=== PATIENT | female | born 1980 | race Caucasian/White ===

== ENCOUNTER 2016-10-20 08:50 | Emergency (ER) | payer OTHER ==
[~2016-10-20] VITALS: Ht 165.1 cm; Wt 61.4 kg
[~2016-10-20 08:50] MED LIST: LISI-661 PO
[2016-10-20] MEDS ORDERED: OMEP20TA2 PO (09:01)
[2016-10-20] MEDS ORDERED: LORazepam 2 MG/ML VIAL IVP ONE ×2 (09:15→10:15)
[2016-10-20] MEDS ORDERED: ONDANSETRON HCL 4 MG/2 ML VIAL IVP ONE (09:15)
[2016-10-20] MEDS ORDERED: FAMOTIDINE 10 MG/ML 2 ML VIAL IVP ONE (09:15)
[2016-10-20] MEDS ORDERED: SODIUM CHLORIDE 0.9% 1,000 ML IV ONE (09:15)
[2016-10-20] MEDS ORDERED: PANTOPRAZOLE SODIUM 40 MG/VIAL IVP ONE (09:15)
[2016-10-20 09:36] LABS: BASOPHILS # (AUTO) 0.03 K/uL (0.00-0.20); BASOPHILS % (AUTO) 0.4 % (0.0-2.0); EOSINOPHILS # (AUTO) 0.08 K/uL (0.00-0.70); HEMATOCRIT 40.9 % (36-46); HEMOGLOBIN 13.9 g/dL (12.0-16.0); LYMPHOCYTES # (AUTO) 1.9 K/uL (1.0-4.8); LYMPHOCYTES % (AUTO) 29.5 % (22.0-44.0); MEAN CORPUSCULAR HEMOGLOBIN 31.3 pg (26.0-34.0); MEAN CORPUSCULAR HGB CONC 33.9 G/dL (31.0-37.0); MEAN CORPUSCULAR VOLUME 92 fL (80-100); MONOCYTES # (AUTO) 0.3 K/uL (0.1-1.0); MONOCYTES % (AUTO) 4.9 % (2.0-9.0); NEUTROPHILS # (AUTO) 4.1 K/uL (1.8-7.7); PLATELET COUNT (AUTO) 204 K/uL (150-450); RED BLOOD CELL COUNT(AUTO) 4.43 MIL/uL (4.00-5.20); RED CELL DISTRIBUTION WIDTH 12.9 % (11.5-14.5); WHITE BLOOD COUNT (AUTO) 6.4 K/uL (4.5-11.0)
[2016-10-20 09:38] LABS: ANION GAP 12 mmol/L (8-16); CALCIUM, TOTAL 9.3 mg/dL (8.8-10.5); CARBON DIOXIDE 26 mmol/L (22-29); CHLORIDE 104 mmol/L (98-107); CREATININE 0.77 mg/dL (0.60-1.30); GLOMERULAR FILTR. RATE CALC > 60 mL/min (>60); POTASSIUM 3.8 mmol/L (3.5-5.1); SODIUM SERUM 142 mmol/L (136-145); UREA NITROGEN, BLOOD 9 mg/dL (7-18)
[2016-10-20 09:44] LABS: ALANINE AMINOTRANSFERASE 21 U/L (12-78); ALBUMIN 4.3 g/dL (3.4-5.0); ASPARTATE AMINOTRANSFERASE 13 U/L (15-37); BILIRUBIN,TOTAL 0.4 mg/dL (0.1-1.0); TOTAL PROTEIN, SERUM 7.5 g/dL (6.4-8.2)
[2016-10-20 10:05] LABS: ADD UA MICROSCOPIC YES; APPEARANCE,URINE CLEAR (CLEAR); GLUCOSE, URINE (UA) NEGATIVE (NEGATIVE); KETONES,URINE NEGATIVE (NEGATIVE); LEUKOCYTE ESTERASE ,URINE NEGATIVE (NEGATIVE); OCCULT BLOOD,URINE TRACE (NEGATIVE); PROTEIN,URINE NEGATIVE (NEGATIVE)
[2016-10-20 10:07] LABS: RBC,URINE 0-2 /HPF (0-2); SQUAMOUS EPITHELIAL CELL,UR Few /LPF (None Seen); WBC,URINE 0-2 /HPF (0-5)
[2016-10-20] MEDS ORDERED: DONNATAL/LIDOCAINE/MAALOX 55 ML BOTTLE PO ONE (10:15)
[2016-10-20 11:28] VITALS: BP 124/76
== END 2016-10-20 12:25 | disposition home or self-care (01) ==
LOC: EMS 08:52
DX: K21.9 Gastro-esophageal reflux disease without esophagitis (principal); F41.9 Anxiety disorder, unspecified; I10 Essential (primary) hypertension; F17.210 Nicotine dependence, cigarettes, uncomplicated; Z88.1 Allergy status to other antibiotic agents; Z88.0 Allergy status to penicillin
CPT/HCPCS: 36415; 74176; 80053; 81001; 83690; 84484; 85025; 93005; 96361; 96374; 96375; 96376; 99285; C9113; J2060; J2405; J3490; J7030

== ENCOUNTER 2018-12-28 10:20 | Emergency (ER) | payer OTHER ==
[~2018-12-28] VITALS: Ht 165.1 cm; Wt 75.0 kg
[~2018-12-28 10:20] MED LIST changes: +OMEP20TA2 PO
[2018-12-28] MEDS ORDERED: SODIUM CHLORIDE 0.9% 1,000 ML IV ONE (11:30)
[2018-12-28 11:46] LABS: BASOPHILS % (AUTO) 0.3 % (0.0-2.0); EOSINOPHILS % (AUTO) 1.1 % (1.0-6.0); HEMATOCRIT 40.9 % (36-46); HEMOGLOBIN 13.6 g/dL (12.0-16.0); LYMPHOCYTES # (AUTO) 1.6 K/uL (1.0-4.8); MEAN CORPUSCULAR HEMOGLOBIN 31.4 pg (26.0-34.0); MEAN CORPUSCULAR HGB CONC 33.3 G/dL (31.0-37.0); MEAN CORPUSCULAR VOLUME 95 fL (80-100); MONOCYTES # (AUTO) 0.3 K/uL (0.1-1.0); MONOCYTES % (AUTO) 4.8 % (2.0-9.0); NEUTROPHILS # (AUTO) 3.5 K/uL (1.8-7.7); NEUTROPHILS % (AUTO) 64.8 % (40.0-70.0); PLATELET COUNT (AUTO) 196 K/uL (150-450); RED BLOOD CELL COUNT(AUTO) 4.33 MIL/uL (4.00-5.20); RED CELL DISTRIBUTION WIDTH 13.4 % (11.5-14.5)
[2018-12-28 12:25] LABS: ANION GAP 7 mmol/L (8-16); CALCIUM, TOTAL 9.3 mg/dL (8.8-10.5); CARBON DIOXIDE 26 mmol/L (22-29); CHLORIDE 105 mmol/L (98-107); CREATININE 0.71 mg/dL (0.60-1.30); GLOMERULAR FILTR. RATE CALC > 60 mL/min (>60); GLUCOSE,RANDOM 89 mg/dL (70-110); POTASSIUM 3.9 mmol/L (3.5-5.1); SODIUM SERUM 138 mmol/L (136-145); UREA NITROGEN, BLOOD 11 mg/dL (7-18)
[2018-12-28 12:30] VITALS: BP 122/73
[2018-12-28 12:30] LABS: ALANINE AMINOTRANSFERASE 24 U/L (12-78); ALBUMIN 3.8 g/dL (3.4-5.0); ALKALINE PHOSPHATASE 50 U/L (46-116); ASPARTATE AMINOTRANSFERASE 17 U/L (15-37); BILIRUBIN,TOTAL 0.2 mg/dL (0.1-1.0); TOTAL PROTEIN, SERUM 7.1 g/dL (6.4-8.2)
== END 2018-12-28 13:01 | disposition home or self-care (01) ==
LOC: EMS 10:21
DX: R07.9 Chest pain, unspecified (principal); R00.2 Palpitations; I10 Essential (primary) hypertension; F41.9 Anxiety disorder, unspecified; F17.210 Nicotine dependence, cigarettes, uncomplicated; Z88.0 Allergy status to penicillin; Z79.899 Other long term (current) drug therapy
CPT/HCPCS: 36415; 80053; 84484; 85025; 93005; 96360; 99285; J7030

== ENCOUNTER 2019-02-22 09:35 | Emergency (ER) | payer OTHER ==
[~2019-02-22] VITALS: Ht 165.1 cm; Wt 81.8 kg
[2019-02-22] MEDS ORDERED: CHOL50004 PO (09:42)
[2019-02-22] MEDS ORDERED: OMEG-135 PO (09:42)
[2019-02-22] MEDS ORDERED: MULT-248 PO (09:42)
[2019-02-22 10:07] LABS: BASOPHILS % (AUTO) 0.3 % (0.0-2.0); EOSINOPHILS % (AUTO) 0.8 % (1.0-6.0); HEMATOCRIT 41.5 % (36-46); LYMPHOCYTES # (AUTO) 1.5 K/uL (1.0-4.8); LYMPHOCYTES % (AUTO) 23.6 % (22.0-44.0); MEAN CORPUSCULAR HEMOGLOBIN 31.8 pg (26.0-34.0); MEAN CORPUSCULAR HGB CONC 33.8 G/dL (31.0-37.0); MEAN CORPUSCULAR VOLUME 94 fL (80-100); MONOCYTES # (AUTO) 0.3 K/uL (0.1-1.0); MONOCYTES % (AUTO) 4.1 % (2.0-9.0); NEUTROPHILS # (AUTO) 4.7 K/uL (1.8-7.7); NEUTROPHILS % (AUTO) 71.2 % (40.0-70.0); PLATELET COUNT (AUTO) 209 K/uL (150-450); RED BLOOD CELL COUNT(AUTO) 4.41 MIL/uL (4.00-5.20); RED CELL DISTRIBUTION WIDTH 13.1 % (11.5-14.5)
[2019-02-22 10:17] LABS: ANION GAP 9 mmol/L (8-16); CALCIUM, TOTAL 9.1 mg/dL (8.8-10.5); CARBON DIOXIDE 26 mmol/L (22-29); CHLORIDE 103 mmol/L (98-107); CREATININE 0.91 mg/dL (0.60-1.30); GLOMERULAR FILTR. RATE CALC > 60 mL/min (>60); GLUCOSE,RANDOM 138 mg/dL (70-110); POTASSIUM 3.6 mmol/L (3.5-5.1); SODIUM SERUM 138 mmol/L (136-145); UREA NITROGEN, BLOOD 13 mg/dL (7-18)
[2019-02-22 10:24] LABS: ALANINE AMINOTRANSFERASE 20 U/L (12-78); ALBUMIN 4.2 g/dL (3.4-5.0); ALKALINE PHOSPHATASE 47 U/L (46-116); ASPARTATE AMINOTRANSFERASE 16 U/L (15-37); BILIRUBIN,TOTAL 0.4 mg/dL (0.1-1.0); TOTAL PROTEIN, SERUM 7.1 g/dL (6.4-8.2)
[2019-02-22] MEDS ORDERED: LORazepam 1 MG TABLET PO ONE (11:30)
[2019-02-22 11:52] LABS: HCG,QUANTITATIVE < 1 mIU/mL (0-6)
[2019-02-22 15:31] VITALS: BP 137/94
== END 2019-02-22 15:45 | disposition home or self-care (01) ==
LOC: EMS 09:36
DX: R07.89 Other chest pain (principal); M54.6 Pain in thoracic spine; R20.2 Paresthesia of skin; F41.9 Anxiety disorder, unspecified; K21.9 Gastro-esophageal reflux disease without esophagitis; I10 Essential (primary) hypertension; F17.210 Nicotine dependence, cigarettes, uncomplicated; Z88.0 Allergy status to penicillin; Z79.899 Other long term (current) drug therapy
CPT/HCPCS: 93005; 99406

== ENCOUNTER 2020-01-16 17:57 | Emergency (ER) | payer OTHER ==
[~2020-01-16] VITALS: Ht 165.1 cm; Wt 81.8 kg
[~2020-01-16 17:57] MED LIST changes: +CHOL125C2 PO; +MULT-248 PO; +OMEG-135 PO; -OMEP20TA2 PO
[2020-01-16 20:25] VITALS: BP 147/90
== END 2020-01-16 20:40 | disposition home or self-care (01) ==
LOC: EMS 17:59
DX: J02.9 Acute pharyngitis, unspecified (principal); F17.210 Nicotine dependence, cigarettes, uncomplicated; Z20.828 Contact with and (suspected) exposure to other viral communicable diseases; Z88.0 Allergy status to penicillin; I10 Essential (primary) hypertension; Z79.899 Other long term (current) drug therapy
CPT/HCPCS: 99283; U0003